=== PATIENT | female | born 1980 | race African-American/Black ===

== ENCOUNTER → 2020-04-13 | Outpatient (CLI) | payer OTHER ==
--- NOTE | 2020-04-13 09:03 | EKG REPORT ---
SEVERITY:- BORDERLINE ECG - SINUS RHYTHM PROBABLE LEFT ATRIAL ABNORMALITY : Confirmed by: Deshawn Pool MD 13-Apr-2020 09:02:39
== END ==
LOC: OD 08:10
PROVIDERS: ATTEND Nurse Practitioner Family
DX: I10 Essential (primary) hypertension (principal)
CPT/HCPCS: 93005; 93010